=== PATIENT | female | born 1955 | race Caucasian/White ===

== ENCOUNTER 2016-10-17 17:13 | Outpatient (CLI) ==
[2016-10-17 17:28] VITALS: BMI 24.5
== END 2016-10-17 17:14 | disposition critical access hospital (66) ==
LOC: AMBL 17:13
PROVIDERS: ATTEND Internal Medicine Geriatric Medicine
DX: S01.01XA Laceration without foreign body of scalp, initial encounter (principal); F03.90 Unspecified dementia, unspecified severity, without behavioral disturbance, psychotic disturbance, mood disturbance, and anxiety; W18.30XA Fall on same level, unspecified, initial encounter; Y92.128 Other place in nursing home as the place of occurrence of the external cause

== ENCOUNTER 2016-10-17 17:23 | Emergency (ER) ==
[2016-10-17 17:28] VITALS: BP 98/61; TEMP 97.6; BMI 24.5
--- NOTE | 2016-10-17 17:41 | ED.PDOC ---
General ED Provider: Dr. TERRI BRASWELL Chief Complaint: Fall Stated Complaint: Patient was a wittness fall while at supper sustaining a laceration on back of head with some bleeding. Time Seen by Physician: 17:25 Mode of Arrival: Ambulance Information Source: EMT Exam Limitations: Dementia Primary Care Provider: DILLON MILLARD Nursing and Triage Documentation Reviewed and Agree: Yes Trauma/Injury Complaint Exam - Head Injury Complaint/Exam Location of Pain: Reports: Scalp (occipital area.) Mechanism of Injury: Reports: Trauma Associated Signs and Symptoms: Reports: Confusion Loss of Consciousness: None Related History: Denies: Occupational injury, Anticoagulants SDH Risk Factors: Present: Elderly Cervical Spine Injury Risk Factors: Present: None Immobilization Removed Post Exam: No Glascow Coma Scale (see protocol): 15 Focal Weakness: Present: None Gait: Unable Gag Reflex Present: Yes Babinski Sign: Negative Right, Negative Left Head Picture: 1 - 2.5 cm laceration Differential Diagnoses: Cervical Fracture, Intracranial Bleed, Trauma Review of Systems - Review Of Systems Constitutional: Reports: No symptoms Skin: Reports: Bruising All Other Systems: Other (Linited due to dementia) Past Medical History - Past Medical History Previously Healthy: Yes Endocrine: Reports: Dyslipidemia Cardiovascular: Reports: None Respiratory: Reports: None Hematological: Reports: None Gastrointestinal: Reports: None Genitourinary: Reports: None Neuro/Psych: Reports: Anxiety, Dementia Musculoskeletal: Reports: None Cancer: Reports: None Last Menstrual Period: none - Surgical History General Surgical History: Reports: Unknown - Family History Family History: Reports: Unknown - Social History Smoking Status: Unknown if ever smoked Hx Substance Use: No Physical Exam - Physical Exam Appearance: Ill-appearing Ill-appearing: Mild Pain Distress: Mild Eyes: NEEMA, EOMI, Conjunctiva clear ENT: Nose normal, Oropharynx normal Neck: Supple Respiratory: Airway patent, Breath sounds clear, Breath sounds equal, Respirations nonlabored Cardiovascular: RRR, Pulses normal, No rub, No murmur GI/: Soft, Nontender Musculoskeletal: ROM intact, No edema Skin: Warm, Dry Neurological: Alert, Disoriented Interpretation - Radiology Interpretation Radiology Interpretation By: Radiologist Radiology Results: No acute changes Exam Interpreted: CT Scan (Negative ) Procedures - Laceration/Wound Repair occipital area Wound Description: Irregular Wound Length (cm): 2.5 cm Wound Width: 1 Wound Depth: 0.5 Wound Explored: Clean Wound Irrigated: No Wound Prep: Jamarcusiclekendra Anesthesia: Lidocaine Wound Debrided: Minimal Wound Repaired With: Sutures Suture Size and Type: 3.0 Ethlon Number of Sutures: 7 (simple interupted. ) Sterile Dressing Applied?: Yes Splint Applied?: No Sling Applied?: No Progress: Tolerated procedure well no complications Critical Care Note - Critical Care Note Total Time (mins): 10 Course - Course Orders, Labs, Meds: Orders Category Date Time Status Lidocaine HCl/Pf [Lidocaine 1 % Amp 5 ml (Sutures)] MEDS 10/17/16 18:17 Discontinued 5 ml SQ ONCE STA CT CERVICAL SPINE W/O CONTRAST Stat RADS 10/17/16 17:[address] HEAD W/O CONTRAST Stat RADS 10/17/16 17:36 Completed Medications Discontinued Medications Generic Name Dose Route Start Last Admin Trade Name Freq PRN Reason Stop Dose Admin Lidocaine HCl 5 ml 10/17/16 18:17 Lidocaine 1 % Amp 5 Ml (Sutures) SQ 10/17/16 18:18 ONCE STA Vital Signs: Temp Pulse Resp BP Pulse Ox 10/17/16 17:24 97.6 F 69 20 98/61 100 Departure - Departure Time of Disposition: 18:39 Disposition: DISCH W/I HOSP TO [facility] Discharge Problem: Scalp injury Qualifiers: Encounter type: initial encounter Qualifier Code: (S09.90XA) Unspecified injury of head, initial encounter Scalp laceration Qualifiers: Encounter type: initial encounter Qualifier Code: (S01.01XA) Laceration without foreign body of scalp, initial encounter Instructions: Laceration (ED) Condition: Fair Pt referred to PMD for follow-up: Yes Additional Instructions: Have sutures removed in 7-10 days Allergies/Adverse Reactions: Allergies amoxicillin trihydrate [From Augmentin] Allergy (Intermediate, Verified 18:57) Rash Dr. Millard requested this allergy be added. potassium clavulanate [From Augmentin] Allergy (Intermediate, Verified 03/19/13 18:57) Rash Dr. Millard requested this allergy be added. codeine Adverse Reaction (Verified 10/17/16 17:37) Sulfa (Sulfonamide Antibiotics) Adverse Reaction (Verified 03/17/13 22:58) Home Medications: Ambulatory Orders Alprazolam [Xanax] 0.5 mg PO BID 03/15/13 Amoxicillin/Potassium Clav [Augmentin 500-125 mg Tab] 1 tab PO Q12HR 03/15/13 Atorvastatin Calcium [Lipitor] 20 mg PO DAILY 03/15/13 Cyanocobalamin (Vitamin B-12) [Cyanocobalamin Injection] 1,000 mcg IJ MONTHLY Diazepam 2 mg PO DAILY 03/15/13 Furosemide [Lasix Tab] 20 mg PO QDAC 03/15/13 Hydrochlorothiazide 25 mg PO DAILY 03/15/13 Lactobacillus Acidophilus [Probiotic] 1 each PO BID 03/15/13 Lisinopril [Zestril] 10 mg PO DAILY 03/15/13 Potassium Chloride [K-Dur] 20 meq PO DAILY 03/15/13 Disposition Discussed With: Patient
--- NOTE | 2016-10-17 18:15 | CT ---
EXAM: CT brain without contrast HISTORY: Head trauma TECHNIQUE: CT of the brain without intravenous contrast FINDINGS: There is no acute hemorrhage midline shift or mass effect. No hydrocephalus or abnormal extra-axial fluid collection. Generalized involutional atrophy, moderate. Chronic microvascular ch anges of the white matter tracts, mild. No acute large vessel territorial infarct is seen. The bon y cranium appears normal. The visualized paranasal sinuses are clear. Soft tissues without significa nt abnormality. IMPRESSION: 1. Chronic changes as described. No acute intracranial abnormality is seen.
[2016-10-17] MEDS ORDERED: LIDOCAINE 1 % AMP 5 ML (SUTURES) SQ STA (18:17)
--- NOTE | 2016-10-17 18:19 | CT ---
CT cervical spine without contrast HISTORY: Head and neck trauma and pain TECHNIQUE: CT of the cervical spine with multiplanar reformations. FINDINGS: Reformatted images demonstrate normal alignment with preservation of vertebral body heigh t. Low grade endplate spondylosis and facet arthropathy changes. No fracture seen on the axial or r eformatted images. No acute surrounding soft tissue abnormalitites. Lung apices are clear. IMPRESSION: No acute findings in the cervical spine.
== END 2016-10-17 19:25 | disposition swing bed (61) ==
LOC: ED 17:23
DX: S01.01XA Laceration without foreign body of scalp, initial encounter (principal); S09.90XA Unspecified injury of head, initial encounter; W19.XXXA Unspecified fall, initial encounter
CPT/HCPCS: 99284

== ENCOUNTER 2017-04-16 17:59 | Emergency (ER) ==
[2017-04-16 18:10] VITALS: BMI 22.7
--- NOTE | 2017-04-16 18:44 | ED.PDOC ---
General ED Provider: Dr. TOY HERNÁNDEZ Chief Complaint: Fall Stated Complaint: FALL Time Seen by Physician: 18:00 Information Source: [facility], EMT Exam Limitations: No limitations Primary Care Provider: DILLON MILLARD Nursing and Triage Documentation Reviewed and Agree: Yes (NO LOC) Reviewed sepsis parameters & appropriate labs ordered?: Yes System Inflammatory Response Syndrome: Not Applicable Sepsis Protocol: For patient's 13 years and over: Temp is 96.8 and below OR 101 and greater Pulse >90 BPM Resp >20/minute Acutely Altered Mental Status Are patient's symptoms suggestive of a new infection, such as: -Pneumonia -Skin, Soft Tissue -Endocarditis -UTI -Bone, Joint Infection -Implantable Device -Acute Abdominal Infection -Wound Infection -Meningitis -Blood Stream Catheter Infection -Unknown Trauma/Injury Complaint Exam - Head Injury Complaint/Exam Location of Pain: Reports: Scalp Mechanism of Injury: Reports: Trauma Onset/Duration: 10 MIN AGO NO LOC Symptoms Are: Still present Initial Severity: Mild Current Severity: None Aggravating: Reports: None Alleviating: Reports: None Associated Signs and Symptoms: Denies: Confusion, Memory loss, Seizure, Epistaxis, Dental malocclusion, Neck pain, Nausea, Vomiting Loss of Consciousness: None SDH Risk Factors: Present: None Cervical Spine Injury Risk Factors: Present: None Related Surgical History: Reports: None Focal Weakness: Present: None Focal Sensory Loss: Present: None Gait: Unable Gag Reflex Present: Yes Nexus Low Risk Criteria: No post-midline CS tender, No evidence of intoxicat., No Altered LOC, No focal neuro deficit, No distracting injuries Differential Diagnoses: Trauma Review of Systems - Review Of Systems Constitutional: Reports: No symptoms Eyes: Reports: No symptoms Ears, Nose, Mouth, Throat: Reports: No symptoms Respiratory: Reports: No symptoms Cardiac: Reports: No symptoms GI: Reports: No symptoms : Reports: No symptoms Musculoskeletal: Reports: No symptoms Skin: Reports: No symptoms Neurological: Reports: No symptoms Endocrine: Reports: No symptoms Hematologic/Lymphatic: Reports: No symptoms All Other Systems: Reviewed and Negative Past Medical History - Past Medical History Previously Healthy: Yes Endocrine: Reports: Dyslipidemia Cardiovascular: Reports: None Respiratory: Reports: None Hematological: Reports: None Gastrointestinal: Reports: None Genitourinary: Reports: None Neuro/Psych: Reports: Anxiety, Dementia Musculoskeletal: Reports: None Cancer: Reports: None Last Menstrual Period: unknown - Surgical History General Surgical History: Reports: Unknown - Family History Family History: Reports: Unknown - Social History Smoking Status: Unknown if ever smoked Hx Substance Use: No Alcohol Screening: None Physical Exam - Physical Exam Appearance: Well-appearing, No pain distress, Well-nourished Eyes: NEEMA, EOMI, Conjunctiva clear ENT: Ears normal, Nose normal, Oropharynx normal Respiratory: Airway patent, Breath sounds clear, Breath sounds equal, Respirations nonlabored Cardiovascular: RRR, Pulses normal, No rub, No murmur GI/: Soft, Nontender, No masses, Bowel sounds normal, No Organomegaly Musculoskeletal: Normal strength, ROM intact, No edema, No calf tenderness Skin: Warm, Dry, Normal color Neurological: Sensation intact, Motor intact, Reflexes intact, Cranial nerves intact, Alert, Oriented Psychiatric: Affect appropriate, Mood appropriate Interpretation - Radiology Interpretation Radiology Interpretation By: Radiologist Critical Care Note - Critical Care Note Total Time (mins): 0 Course - Course Orders, Labs, Meds: Orders Category Date Time Status CT CERVICAL SPINE W/O CONTRAST Stat RADS 04/16/17 18:[address] HEAD W/O CONTRAST Stat RADS 04/16/17 18:24 Ordered Vital Signs: Temp Pulse Resp BP Pulse Ox 04/16/17 18:01 98.5 F 95 H 20 98/53 L 97 Departure - Departure Time of Disposition: 19:30 Disposition: HOME SELF-CARE Discharge Problem: Head injury Qualifiers: Encounter type: initial encounter Qualified Code(s): S09.90XA - Unspecified injury of head, initial encounter Instructions: Head Injury (ED) Condition: Good Pt referred to PMD for follow-up: Yes Additional Instructions: Please call your Family Physician as soon as possible to schedule a follow-up appointment. Allergies/Adverse Reactions: Allergies amoxicillin trihydrate [From Augmentin] Allergy (Intermediate, Verified 18:57) Rash Dr. Millard requested this allergy be added. potassium clavulanate [From Augmentin] Allergy (Intermediate, Verified 03/19/13 18:57) Rash Dr. Millard requested this allergy be added. codeine Adverse Reaction (Verified 10/17/16 17:37) Sulfa (Sulfonamide Antibiotics) Adverse Reaction (Verified 03/17/13 22:58) Home Medications: Ambulatory Orders Alprazolam [Xanax] 0.25 mg PO DAILY 03/15/13 Cyanocobalamin (Vitamin B-12) [Cyanocobalamin Injection] 1,000 mcg IJ MONTHLY Furosemide [Lasix Tab] 20 mg PO QDAC 03/15/13 Lisinopril [Zestril] 10 mg PO DAILY 03/15/13 Cephalexin [Keflex] 500 mg PO Q8HR 04/16/17 Ferrous Sulfate 325 mg PO BID 04/16/17 Oseltamivir Phosphate [Tamiflu] 75 mg PO DAILY 04/16/17 Potassium Chloride [Micro-K Cap] 20 meq PO BID 04/16/17 Sennosides [Senna Lax] 1 tab PO DAILY 04/16/17 Disposition Discussed With: Patient
--- NOTE | 2017-04-16 19:42 | CT ---
Exam: CT brain without contrast Clinical indication: Fall. No further information is provided. Comparison: 10/17/2016. TECHNIQUE: Axial unenhanced CT images from the skull base through the brain were obtained. Coronal and sagital reformats were performed. Findings: There is no evidence of intra or extra-axial hemorrhage. The images are provided and off center access on all three planes. There is severe diffuse cerebral atrophy of the keeping with the patient's age. There is moderate to severe periventricular hypodensities consistent with moderate to severe chronic small vessel ischemic changes.There is no evidence of mass, infarct or midline shift. The ventricles and basilar cisterns are within normal limits. There are soft tissue changes within the right maxillary sinus suggesting acute sinusitis. There is some mild circumferential mucosal thickening within the left maxillary sinus suggesting chronic sinus itis. Otherwise, the visualized paranasal sinuses and mastoid air cells are clear. The visualized bony structures are unremarkable. Impression: 1. No interval change, with no acute intracranial abnormality. 2. Acute right and chronic left maxillary sinusitis. 3. Severe diffuse cerebral atrophy of the keeping with the patient's age. 4. Moderate to severe chronic small vessel ischemic changes.
--- NOTE | 2017-04-16 21:10 | CT ---
EXAM: CT cervical spine without contrast HISTORY: Fall COMPARISON: None TECHNIQUE: CT cervical spine without intravenous contrast. Coronal and sagittal reformatted images obtained. FINDINGS: Evaluation limited by patient positioning. Vertebral bodies normal height. No fracture. No subluxation. Straightening of the normal cervical lordosis. Mild multilevel degenerative changes . Prevertebral soft tissues appear normal. Central canal grossly patent. IMPRESSION: 1. No fracture or subluxation. 2. Mild degenerative changes 3. Straightening of the normal cervical lordosis.
[2017-04-16 21:38] VITALS: BP 124/94; TEMP 97.6
== END 2017-04-16 23:00 | disposition home or self-care (01) ==
LOC: ED 17:59
DX: S09.90XA Unspecified injury of head, initial encounter (principal); W07.XXXA Fall from chair, initial encounter; Y92.129 Unspecified place in nursing home as the place of occurrence of the external cause; F03.90 Unspecified dementia, unspecified severity, without behavioral disturbance, psychotic disturbance, mood disturbance, and anxiety
CPT/HCPCS: 99283

== ENCOUNTER 2017-05-24 14:28 | Outpatient (CLI) | END 2017-05-24 14:29 | disposition home or self-care (01) | LOC: NONPT 14:28 | PROVIDERS: ATTEND Internal Medicine | DX: R30.0 Dysuria (principal) | CPT/HCPCS: 81001; 87086 ==

== ENCOUNTER 2017-08-11 15:37 | Inpatient (IN) | payer OTHER ==
--- NOTE | 2017-08-11 17:13 | CT ---
EXAM: CT of the abdomen pelvis without contrast History: Abdominal pain. Nausea and vomiting Technique: Multiplanar CT images through the abdomen pelvis were obtained without the administration of IV contrast Findings: There is motion artifact limits evaluation. Ground-glass opacity within the right lung ba se. No acute osseous abnormalities are identified within limitations of the motion artifact. No renal stones and no hydronephrosis. No discrete gallstones identified by CT. No focal liver or s plenic lesions. Atherosclerotic vascular calcifications. No peripancreatic inflammation. Adrenal g lands are unremarkable. No bowel obstruction. Large amount of stool seen distending the rectosigmoi d colon. No perirectal inflammation. No bladder wall thickening. Atrophic uterus. No free air and no ascites. No inflammatory stranding. Impression: 1. No acute intra-abdominal or pelvic process. 2. Large amount of stool seen distending the rectosigmoid colon compatible with constipation. 3. Mild ground-glass infiltrate seen within the right lower lobe could indicate aspiration or depend ent atelectasis.
[2017-08-11] MEDS ORDERED: ZOFRAN 4 MG/2 ML IVP PRN (18:20)
[2017-08-11] MEDS ORDERED: ZOFRAN 4 MG/2 ML IVP STA (18:20)
--- NOTE | 2017-08-11 18:25 | ED.PDOC ---
General ED Provider: Dr. TOY HERNÁNDEZ Chief Complaint: Nausea/Vomiting Stated Complaint: NAUSEA, VOMITING Time Seen by Physician: 16:00 Mode of Arrival: Walk-In Information Source: Custodial Exam Limitations: No limitations Primary Care Provider: DILLON MILLARD Nursing and Triage Documentation Reviewed and Agree: Yes Reviewed sepsis parameters & appropriate labs ordered?: Yes System Inflammatory Response Syndrome: Not Applicable Sepsis Protocol: For patient's 13 years and over: Temp is 96.8 and below OR 101 and greater Pulse >90 BPM Resp >20/minute Acutely Altered Mental Status Are patient's symptoms suggestive of a new infection, such as: -Pneumonia -Skin, Soft Tissue -Endocarditis -UTI -Bone, Joint Infection -Implantable Device -Acute Abdominal Infection -Wound Infection -Meningitis -Blood Stream Catheter Infection -Unknown System Inflammatory Response Syndrome: Not Applicable GI Complaint Exam - Abdominal Pain Complaint/Exam Onset: Gradual Duration: 1 DAY WITH NAUSEA, VOMITING , LOOSE STOOLS MINIMAL ABDOMINAL PAIN ON EXAM Symptoms Are: Still present Timing: Intermittent Initial Severity: Mild Current Severity: None Location of Pain: Diffuse Radiates To: Reports: LLQ, RLQ. Denies: Chest, Back, Flank Character: Reports: Aching Aggravating: Reports: None Alleviating: Reports: None Associated Signs and Symptoms: Reports: Decreased appetite, Nausea, Vomiting, Diarrhea. Denies: Diaphoresis, Fever, Cough, Chest pain, Dizziness, Back pain, Constipation, Blood in stool, Dysuria, Urinary frequency, Decreased urine output , Vaginal bleeding, Vaginal discharge, Sore throat, Decreased activity AAA Risk Factors: Reports: None Cardiac Risk Factors: Reports: Elevated lipids Ectopic Risk Factors: Reports: None Ovarian Torsion Risk Factors: Reports: None Surgical Obstruction Risk Factors: Reports: None Related Surgical History: Reports: None Patient Rh Status: Unknown Abdominal Findings: Present: None Differential Diagnoses: Appendicitis, Bowel Obstruction, Constipation, Gastroenteritis Review of Systems - Review Of Systems Constitutional: Reports: Malaise Eyes: Reports: No symptoms Ears, Nose, Mouth, Throat: Reports: No symptoms Respiratory: Reports: No symptoms Cardiac: Reports: No symptoms GI: Reports: Abdominal pain, Diarrhea, Nausea, Poor appetite, Vomiting : Reports: No symptoms Musculoskeletal: Reports: No symptoms Skin: Reports: No symptoms Neurological: Reports: No symptoms Endocrine: Reports: No symptoms Hematologic/Lymphatic: Reports: No symptoms All Other Systems: Reviewed and Negative Past Medical History - Past Medical History Previously Healthy: Yes Endocrine: Reports: Dyslipidemia Cardiovascular: Reports: None Respiratory: Reports: None Hematological: Reports: None Gastrointestinal: Reports: None Genitourinary: Reports: None Neuro/Psych: Reports: Anxiety, Dementia Musculoskeletal: Reports: None Cancer: Reports: None Last Menstrual Period: menopause - Surgical History General Surgical History: Reports: Unknown - Family History Family History: Reports: Unknown - Social History Smoking Status: Unknown if ever smoked Hx Substance Use: No Alcohol Screening: None Physical Exam - Physical Exam Appearance: Ill-appearing Ill-appearing: Mild Pain Distress: Mild Eyes: NEEMA, EOMI, Conjunctiva clear ENT: Dry mucosa Respiratory: Airway patent, Breath sounds clear, Breath sounds equal, Respirations nonlabored Cardiovascular: RRR, Pulses normal, No rub, No murmur GI/: Soft, Nontender, No masses, Bowel sounds normal, No Organomegaly Musculoskeletal: Normal strength, ROM intact, No edema, No calf tenderness Skin: Warm, Dry, Normal color Neurological: Sensation intact, Motor intact, Reflexes intact, Cranial nerves intact, Alert, Oriented Psychiatric: Affect appropriate, Mood appropriate Interpretation - Radiology Interpretation Radiology Interpretation By: Radiologist Radiology Results: Positive (CONSTIPATION LARGE VOLUME STOOL) Physician Notification - Case Discussed Physician Notified: PMD Time of Notification: 18:26 Admit To: Inpatient Critical Care Note - Critical Care Note Total Time (mins): 0 Course - Course Hematology/Chemistry: 08/11/17 17:10 08/11/17 17:10 Orders, Labs, Meds: Lab Review 08/11/17 08/11/17 08/11/17 16:45 17:10 17:10 WBC 11.13 H RBC 3.61 L Hgb 11.8 L Hct 34.9 L MCV 96.7 MCH 32.7 H MCHC 33.8 RDW Coeff of Pillo 12.1 Plt Count 171 Immature Gran % (Auto) 0.4 Neut % (Auto) 88.6 Lymph % (Auto) 7.9 L Avery % (Auto) 2.8 Eos % (Auto) 0.0 Baso % (Auto) 0.3 Immature Gran # (Auto) 0.1 Neut # (Auto) 9.9 H Lymph # (Auto) 0.9 Avery # (Auto) 0.3 L Eos # (Auto) 0.0 Baso # (Auto) 0.0 Sodium 140 Potassium 4.6 Chloride 106 Carbon Dioxide 24 Anion Gap 14.6 BUN 30 H Creatinine 0.82 Estimated GFR (MDRD) 70.00 BUN/Creatinine Ratio 36.58 Glucose 148 H Calcium 9.2 Total Bilirubin 0.4 AST 21 ALT 30 Alkaline Phosphatase 74 Total Protein 6.7 Albumin 3.7 Globulin 3.0 Albumin/Globulin Ratio 1.23 Influ A Molecular Assay Negative by naat Influ B Molecular Assay Negative by naat Orders Category Date Time Status ACTIVITY .Complete BR CARE 08/11/17 18:19 Ordered Enema [ENEMA/RECTAL TUBE] .PRN CARE 08/11/17 18:21 Ordered INTAKE & OUTPUT Q8HR CARE 08/11/17 18:19 Ordered VITAL SIGNS Q4HR CARE 08/11/17 18:19 Ordered REGULAR DIET DIETARY 08/11/17 Dinner Ordered CBC W/ AUTO DIFF DAILY@0600 LAB 08/12/17 06:00 Ordered CBC W/ AUTO DIFF DAILY@0600 LAB 08/13/17 06:00 Ordered CBC W/ AUTO DIFF Stat LAB 08/11/17 17:10 Completed COMPREHENSIVE METABOLIC PANEL DAILY@0600 LAB 08/12/17 06:00 Ordered COMPREHENSIVE METABOLIC PANEL DAILY@0600 LAB 08/13/17 06:00 Ordered COMPREHENSIVE METABOLIC PANEL Stat LAB 08/11/17 17:10 Completed FLU A/B MOLECULAR Stat LAB 08/11/17 16:45 Completed Furosemide [Lasix Tab] MEDS 08/12/17 06:30 Ordered 20 mg PO QDAC Lisinopril [Zestril] MEDS 08/12/17 09:00 Ordered 10 mg PO DAILY Lorazepam [Ativan] MEDS 08/11/17 21:00 Ordered 0.5 mg PO TID Ondansetron HCl/Pf [Zofran 4 mg/2 ml] MEDS 08/11/17 18:20 Stat 4 mg IVP ONCE STA Ondansetron HCl/Pf [Zofran 4 mg/2 ml] MEDS 08/11/17 18:20 Ordered 4 mg IVP Q6H PRN Potassium Chloride [Micro-K Cap] MEDS 08/11/17 21:00 Ordered 20 meq PO BID Sennosides [Senna] MEDS 08/12/17 09:00 Ordered 8.6 mg PO DAILY Sodium Chloride 0.9% [Sodium Chloride] 1,000 ml MEDS 08/11/17 18:30 Ordered IV 75 mls/hr CT ABDOMEN/PELVIS WO CONTRAST Stat RADS 08/11/17 16:37 Completed Medications Generic Name Dose Route Start Last Admin Trade Name Krzysztof PRN Reason Stop Dose Admin Sodium Chloride 1,000 mls @ 75 mls/hr 08/11/17 18:30 Sodium Chloride IV .[id number] JEFF Ondansetron HCl 4 mg 08/11/17 18:20 Zofran 4 Mg/2 Ml IVP Q6H PRN Nausea / Vomiting Discontinued Medications Generic Name Dose Route Start Last Admin Trade Name Krzysztof PRN Reason Stop Dose Admin Ondansetron HCl 4 mg 08/11/17 18:20 Zofran 4 Mg/2 Ml IVP 08/11/17 18:21 ONCE STA Vital Signs: Temp Pulse Resp BP Pulse Ox 08/11/17 18:06 102/50 L 08/11/17 17:43 107/59 L 08/11/17 15:42 96.8 F L 65 16 84/39 L 97 Departure - Departure Time of Disposition: 18:27 Disposition: ADMITTED INPATIENT Discharge Problem: Nausea, Vomiting Constipation Qualifiers: Constipation type: unspecified constipation type Qualified Code(s): K59.00 - Constipation, unspecified Abdominal pain Qualifiers: Abdominal location: generalized Qualified Code(s): R10.84 - Generalized abdominal pain Instructions: Abdominal Pain (ED) Condition: Good Pt referred to PMD for follow-up: Yes IPMP verified?: No Allergies/Adverse Reactions: Allergies codeine Adverse Reaction (Verified 08/11/17 15:55) Sulfa (Sulfonamide Antibiotics) Adverse Reaction (Verified 08/11/17 15:55) Home Medications: Ambulatory Orders Cyanocobalamin (Vitamin B-12) [Cyanocobalamin Injection] 1,000 mcg IJ MONTHLY Furosemide [Lasix Tab] 20 mg PO QDAC 03/15/13 Lisinopril [Zestril] 10 mg PO DAILY 03/15/13 Ferrous Sulfate 325 mg PO BID 04/16/17 Potassium Chloride [Micro-K Cap] 20 meq PO BID 04/16/17 Sennosides [Senna Lax] 1 tab PO DAILY 04/16/17 Acetaminophen 1,000 mg PO Q4HR PRN 08/11/17 Lorazepam [Ativan] 0.5 mg PO TID 08/11/17
[2017-08-11 20:34] VITALS: BMI 22.6
[2017-08-11] MEDS: SODIUM CHLORIDE 1,000 ML IV SCH (20:47)
[2017-08-11] MEDS: ATIVAN PO SCH ×2 (21:51→23:45)
[2017-08-11] MEDS: MICRO-K CAP PO SCH ×2 (21:51→23:46)
[2017-08-12] MEDS: LASIX TAB PO SCH (06:35)
[2017-08-12] MEDS ORDERED: ZOFRAN 4 MG/2 ML IVP STA (08:26)
[2017-08-12] MEDS: K-DUR PO SCH ×2 (10:34→17:08)
[2017-08-12] MEDS: ATIVAN PO SCH ×3 (10:34→20:54)
[2017-08-12] MEDS: SENNA PO SCH (10:35)
[2017-08-12] MEDS: ZESTRIL PO SCH (10:36)
[2017-08-12] MEDS: PROTONIX IV IVP SCH (10:41)
[2017-08-12] MEDS: ROCEPHIN 1 GM in SODIUM CHLORIDE 50 ML IV SCH (10:41)
[2017-08-12] MEDS: SODIUM CHLORIDE 1,000 ML IV SCH ×2 (10:41→23:34)
--- NOTE | 2017-08-12 11:14 | RS.SLPCNOT ---
Speech Case Note Date of Note: 08/12/17 Title: Swallow screen Note: RANCH HELPER attempted bedside swallow evaluation with pt. No PO intake was consumed. Pt laying on side and when given assistance would not move to back to sit upright for feeding. Pt did respond to simple yes/no questions, primarily with a no bias, but answered yes three times. Pt verbally stated "i'm cold" and "i'm scared". RANCH HELPER did not try to aggitate pt with food and liquids. RANCH HELPER educated RN to contact RANCH HELPER when pt did take PO and report s/s of aspiration. RANCH HELPER to attempt bedside swallow evaluation with pt at next opportunity.
--- NOTE | 2017-08-12 14:33 | HP ---
DATE OF SERVICE: 08/12/17 HISTORY OF PRESENT ILLNESS: This is a 62-year-old white female, who is a resident at [facility] and [facility]. She has severe dementia with behavioral disturbances and does not communicate very well. She was brought to the emergency room today due to vomiting times three, decreased appetite. PAST MEDICAL HISTORY: Dementia with behavioral disturbances Hypertension Anxiety Vitamin B12 deficiency Hyperglycemia Dyslipidemia History of leg edema Coronary artery disease Osteoarthritis PAST SURGICAL HISTORY: None REVIEW OF SYSTEMS: CONSTITUTIONAL: Positive for confusion. No night sweats. No fatigue, malaise, lethargy. No fever or chills. HEENT: Eyes: No visual changes. No eye pain. No eye discharge. ENT: No runny nose. No epistaxis. No sinus pain. No sore throat. No odynophagia. No ear pain. No congestion. RESPIRATORY: No cough, no congestion. No hemoptysis. No shortness of breath. CARDIOVASCULAR: No angina symptoms. No CHF symptoms. No atypical chest pain for CAD. No palpitations. No orthopnea. GASTROINTESTINAL: Positive for vomiting and decreased appetite. No abdominal pain. No nausea. No diarrhea or constipation. No hematemesis. No hematochezia. GENITOURINARY: No urgency. No frequency. No dysuria. No hematuria. No obstructive symptoms. No discharge. No pain. No significant abnormal bleeding. MUSCULOSKELETAL: No musculoskeletal pain. No joint swelling. No arthritis. NEUROLOGICAL: No headache. No neck pain. No syncope. No seizures. No dizziness. PSYCHIATRIC: Not anxious. No depression. No suicidal thoughts. No homicidal thoughts. SKIN: No rash. No lesions. No wounds. ENDOCRINE: No unexplained weight loss. No weight gain. HEMATOLOGIC/LYMPHATIC: No anemia. No purpura. No petechiae. No prolonged or excessive bleeding. No palpable lymph nodes. PERSONAL/FAMILY/SOCIAL HISTORY: The patient is a resident of [facility]. She needs help with feeding. She is a nonsmoker. Family History: positive for coronary artery disease and hypertension. MEDICATIONS: (Home) Cyanocobalamin (Vitamin B12) 1,000 mcg monthly Lisinopril (Zestril) 10 mg p.o. daily Furosemide (Lasix) 20 mg p.o q.d a.c. Senna 8.6 mg one tab p.o. daily Potassium Chloride (Micro-K) 10 mEq capsule 20 mEq p.o. b.i.d. Ferrous Sulfate 325 mg p.o. b.i.d. Acetaminophen 1,000 mg p.o. q.4h p.r.n. Lorazepam (Ativan) 0.5 mg p.o. t.i.d. ALLERGIES: CODEINE, SULFA (SULFONAMIDE ANTIBIOTICS) PHYSICAL EXAMINATION: VITAL SIGNS: Temperature 96.8, heart rate 65, respirations 18, BP 102/65, pulse ox 100% on room air. HEENT: Head normocephalic, atraumatic. Eyes: Extraocular muscles are intact. Pupils are equal, round and reactive to light and accommodation. Ears: No lesions. Nose appeared normal. Throat: No exudate or erythema. NECK: Supple. No JVD, no carotid bruit. No lymphadenopathy or thyromegaly. LUNGS: Clear to auscultation. Percussion note normal. Chest symmetrical. HEART: S1, S2, no S3. No murmurs. No cyanosis or clubbing. No ascites. Pulses: Dorsalis pedis and posterior tibial pulses +1 to +2 both sides. ABDOMEN: Soft. Nontender. Bowel sounds active. No CVA tenderness. No mass felt. EXTREMITIES: No edema. Full range of motion of all extremities, equal. NEUROLOGIC: The patient is alert and does not communicate. No focal deficit. Cranial nerves II through XII are grossly intact. No headache, no double vision or headache. SKIN: Dry. Intact. Turgor - normal. LYMPHATIC: No palpable lymph nodes/no lymphedema. MUSCULOSKELETAL: Normal joints with no swelling. Muscle tone is normal. LABS: Sodium 140, potassium 4.6, BUN 30, creatinine 0.82, total bili 0.4, AST 21, ALT 30, total protein 6.7, albumin 3.7. White count 11.13, hemoglobin 11.8, hematocrit 34.9, platelets 171, rapid flu A & B are both negative. CT of the abdomen and pelvis shows no acute process, large amount of stool in the descending colon compatible with constipation. Mild ground glass seen within the right lower lobe which could indicate aspiration vs atelectasis. ASSESSMENT: 1. ACUTE GASTROENTERITIS 2. DEHYDRATION 3. DEMENTIA WITH BEHAVIORAL DISTURBANCES PLAN: 1. Admit 2. Will start IV fluids D5 1/2 NS at 75 cc/hr 3. Zofran 4 mg IV q.4hr p.r.n. 4. Protonix 40 mg IV daily 5. Do a full liquid diet - BRAT diet 6. Speech evaluation and consult 7. CBC, CMP daily 8. Routine telemetry orders 9. Fall precautions 10. Will follow closely 11. Amylase and lipase TIME SPENT: More than 70 minutes. MTDD
[2017-08-13] MEDS: LASIX TAB PO SCH (05:35)
[2017-08-13] MEDS: ROCEPHIN 1 GM in SODIUM CHLORIDE 50 ML IV SCH (09:18)
[2017-08-13] MEDS: PROTONIX IV IVP SCH (09:28)
[2017-08-13] MEDS: ZESTRIL PO SCH (09:31)
[2017-08-13] MEDS: K-DUR PO SCH ×2 (09:31→17:30)
[2017-08-13] MEDS: ATIVAN PO SCH ×3 (09:31→20:26)
[2017-08-13] MEDS: SENNA PO SCH (09:31)
--- NOTE | 2017-08-13 10:00 | PCM.PROG ---
Attending Provider: ATTENDING PROVIDER: Dr. DILLON MILLARD This patient is seen with Brandee Walsh, Nurse Practitioner. DATE OF SERVICE: 08/12/17 SUBJECTIVE: This 62 year old WHITE/ F was hospitalized 08/11/17. The patient is lying in bed resting comfortably. No vomiting through the night. She has had four large bowel movements. REVIEW OF SYSTEMS: CONSTITUTIONAL: Weakness. No night sweats. No malaise, lethargy. No fever or chills. HEENT: Eyes: No visual changes. No eye pain. No eye discharge. ENT: No runny nose. No epistaxis. No sinus pain. No odynophagia. No congestion. RESPIRATORY: No cough, no congestion. No hemoptysis. No shortness of breath. CARDIOVASCULAR: No angina symptoms. No CHF symptoms. No atypical chest pain for CAD. No palpitations. No orthopnea.. GASTROINTESTINAL: No abdominal pain. No nausea or vomiting. No diarrhea or constipation. No hematemesis. No hematochezia. GENITOURINARY: No urgency. No frequency. No dysuria. No hematuria. No obstructive symptoms. No discharge. No pain. No significant abnormal bleeding. MUSCULOSKELETAL: No musculoskeletal pain; no joint swelling. NEUROLOGICAL: Awake - confused. No headache. No neck pain. No syncope. No seizures. No dizziness. PSYCHIATRIC: Not anxious. No depression. No suicidal thoughts. No homicidal thoughts. SKIN: No rash. No lesions. No wounds. ENDOCRINE: No unexplained weight loss. No weight gain. HEMATOLOGIC/LYMPHATIC: No anemia. No purpura. No petechiae. No prolonged or excessive bleeding. No palpable lymph nodes. PHYSICAL EXAMINATION: GENERAL: The patient is awake, alert, does not communicate due to severe dementia, lying in bed in no distress. VITAL SIGNS: Temperature 96.8 F, Pulse 65, Respiratory Rate 18, BP 102/65, Pulse Ox 100% HEENT: Head normocephalic, atraumatic. Eyes: Extraocular muscles are intact. Pupils are equal, round and reactive to light and accommodation. Ears: No lesions. Nose appeared normal. Throat: No exudate or erythema. NECK: Supple. No JVD, no carotid bruit. No lymphadenopathy or thyromegaly. LUNGS: Diminished breath sounds. Clear to auscultation. Percussion note normal. Chest symmetrical. HEART: S1, S2, no S3. No murmurs. No cyanosis or clubbing. No ascites. Pulses: Dorsalis pedis and posterior tibial pulses +1 to +2 both sides. ABDOMEN: Soft. Non-tender. Bowel sounds active. No CVA tenderness. No mass felt. EXTREMITIES: No edema. Full range of motion of all extremities, equal. NEUROLOGIC: No focal deficit. Cranial nerves II through XII are grossly intact. No headache, no double vision or headache. SKIN: Not dry. Intact. Turgor-normal. LYMPHATIC: No palpable lymph nodes/no lymphedema. MUSCULOSKELETAL: Normal joints with no swelling. Muscle tone is normal. LAB REVIEW: 08/12/17 05:00 08/12/17 04:30 08/12/17 05:00: WBC 9.32, RBC 3.56 L, Hgb 11.5 L, Hct 33.5 L, MCV 94.1, MCH 32.3 H, MCHC 34.3, RDW Coeff of Pillo 11.9, Plt Count 195, Immature Gran % (Auto) 0.1, Neut % (Auto) 82.6, Lymph % (Auto) 12.4, [place] % (Auto) 4.6, Eos % (Auto) 0.2, Baso % (Auto) 0.1, Immature Gran # (Auto) 0.0, Neut # (Auto) 7.7 H, Lymph # (Auto) 1.2, [place] # (Auto) 0.4, Eos # (Auto) 0.0, Baso # (Auto) 0.0 08/12/17 04:30: Sodium 138, Potassium 4.9, Chloride 106, Carbon Dioxide 24, Anion Gap 12.9, BUN 28 H, Creatinine 0.74, Estimated GFR (MDRD) 79.00, BUN/ Creatinine Ratio 37.83, Glucose 111, Calcium 9.1, Total Bilirubin 0.3, AST 21, ALT 28, Alkaline Phosphatase 73, Total Protein 6.6, Albumin 3.4, Globulin 3.2, Albumin/Globulin Ratio 1.06 08/11/17 17:10: Sodium 140, Potassium 4.6, Chloride 106, Carbon Dioxide 24, Anion Gap 14.6, BUN 30 H, Creatinine 0.82, Estimated GFR (MDRD) 70.00, BUN/ Creatinine Ratio 36.58, Glucose 148 H, Calcium 9.2, Total Bilirubin 0.4, AST 21 , ALT 30, Alkaline Phosphatase 74, Total Protein 6.7, Albumin 3.7, Globulin 3.0 , Albumin/Globulin Ratio 1.23 08/11/17 17:10: WBC 11.13 H, RBC 3.61 L, Hgb 11.8 L, Hct 34.9 L, MCV 96.7, MCH 32.7 H, MCHC 33.8, RDW Coeff of [place]illo 12.1, Plt Count 171, Immature Gran % (Auto) 0.4, Neut % (Auto) 88.6, Lymph % (Auto) 7.9 L, [place] % (Auto) 2.8, Eos % (Auto) 0.0, Baso % (Auto) 0.3, Immature Gran # (Auto) 0.1, Neut # (Auto) 9.9 H, Lymph # (Auto) 0.9, [place] # (Auto) 0.3 L, Eos # (Auto) 0.0, Baso # (Auto) 0.0 08/11/17 16:45: Influ A Molecular Assay Negative by naat, Influ B Molecular Assay Negative by naat ASSESSMENT: 1. Acute gastroenteritis 2. Dehydration PLAN: 1. Zofran 4 mg IV 2. Protonix 40 mg IV 3. Continue IV fluids 4. Full liquid diet 5. Amylase and lipase Plan and coordination of the patient's care discussed in the presence of Racing Car Driver and nurse. CONDITION: Stable SCRIBED BY: YEN BASS Weighmaster scribed while in presence of service performed by Dr. Millard/Brandee Walsh APRN on 08/12/17 ([id number])
--- NOTE | 2017-08-13 10:20 | PCM.PROG ---
Attending Provider: ATTENDING PROVIDER: Dr. DILLON MILLARD This patient is seen with Brandee Walsh, Nurse Practitioner. DATE OF SERVICE: 08/13/17 SUBJECTIVE: This 62 year old WHITE/ F was hospitalized 08/11/17. The patient is lying in bed, awake, does not communicate verbally. She has been refusing all medications and food. No vomiting or diarrhea. REVIEW OF SYSTEMS: CONSTITUTIONAL: No night sweats. No fatigue, malaise, lethargy. No fever or chills. HEENT: Eyes: No visual changes. No eye pain. No eye discharge. ENT: No runny nose. No epistaxis. No sinus pain. No odynophagia. No congestion. RESPIRATORY: No cough, no congestion. No hemoptysis. No shortness of breath. CARDIOVASCULAR: No angina symptoms. No CHF symptoms. No atypical chest pain for CAD. No palpitations. No orthopnea.. GASTROINTESTINAL: Decreased appetite. No abdominal pain. No nausea or vomiting. No diarrhea or constipation. No hematemesis. No hematochezia. GENITOURINARY: No urgency. No frequency. No dysuria. No hematuria. No obstructive symptoms. No discharge. No pain. No significant abnormal bleeding. MUSCULOSKELETAL: No musculoskeletal pain; no joint swelling. NEUROLOGICAL: Awake, confused. No headache. No neck pain. No syncope. No seizures. No dizziness. PSYCHIATRIC: Not anxious. No depression. No suicidal thoughts. No homicidal thoughts. SKIN: No rash. No lesions. No wounds. ENDOCRINE: No unexplained weight loss. No weight gain. HEMATOLOGIC/LYMPHATIC: No anemia. No purpura. No petechiae. No prolonged or excessive bleeding. No palpable lymph nodes. PHYSICAL EXAMINATION: GENERAL: The patient is awake, alert. does not communicate verbally, lying in bed in no distress. VITAL SIGNS: Temperature 96.8 F, Pulse 68, Respiratory Rate 18, BP 102/65, Pulse Ox 100% HEENT: Head normocephalic, atraumatic. Eyes: Extraocular muscles are intact. Pupils are equal, round and reactive to light and accommodation. Ears: No lesions. Nose appeared normal. Throat: No exudate or erythema. NECK: Supple. No JVD, no carotid bruit. No lymphadenopathy or thyromegaly. LUNGS: Clear to auscultation. Percussion note normal. Chest symmetrical. HEART: S1, S2, no S3. No murmurs. No cyanosis or clubbing. No ascites. Pulses: Dorsalis pedis and posterior tibial pulses +1 to +2 both sides. ABDOMEN: Soft. Non-tender. Bowel sounds active. No CVA tenderness. No mass felt. EXTREMITIES: No edema. Full range of motion of all extremities, equal. NEUROLOGIC: No focal deficit. Cranial nerves II through XII are grossly intact. No headache, no double vision or headache. SKIN: Not dry. Intact. Turgor-normal. LYMPHATIC: No palpable lymph nodes/no lymphedema. MUSCULOSKELETAL: Normal joints with no swelling. Muscle tone is normal. LAB REVIEW: 08/13/17 04:30 08/13/17 04:30 08/13/17 04:30: Sodium 138, Potassium 4.3, Chloride 106, Carbon Dioxide 25, Anion Gap 11.3, BUN 17, Creatinine 0.72, Estimated GFR (MDRD) 82.00, BUN/ Creatinine Ratio 23.61, Glucose 92, Calcium 8.5, Total Bilirubin 0.5, AST 20, ALT 22, Alkaline Phosphatase 71, Total Protein 5.9, Albumin 3.1 L, Globulin 2.8 , Albumin/Globulin Ratio 1.11 08/13/17 04:30: WBC 8.17, RBC 3.68 L, Hgb 11.6 L, Hct 35.0 L, MCV 95.1, MCH 31.5 H, MCHC 33.1, RDW Coeff of Pillo 11.9, Plt Count 196, Immature Gran % (Auto) 0.4, Neut % (Auto) 78.7, Lymph % (Auto) 14.2, [place] % (Auto) 5.9, Eos % (Auto) 0.4, Baso % (Auto) 0.4, Immature Gran # (Auto) 0.0, Neut # (Auto) 6.4, Lymph # ( Auto) 1.2, [place] # (Auto) 0.5, Eos # (Auto) 0.0, Baso # (Auto) 0.0 08/12/17 05:15: Amylase 30, Lipase 26 ASSESSMENT: 1. Acute gastroenteritis 2. Dehydration, resolved PLAN: 1. KUB (please ask to comment on stool) Plan and coordination of the patient's care discussed in the presence of Perl Developer and nurse. CONDITION: Stable SCRIBED BY: YEN BASS, Emergency Department Technician scribed while in presence of service performed by Dr. Millard/Brandee Walsh APRN on 08/13/17 ([id number])
--- NOTE | 2017-08-13 11:10 | PN ---
DATE OF SERVICE: 08/11/17 (ADMIT NOTE) SUBJECTIVE: The patient was hospitalized through the emergency room as care home called me with her having vomiting. Also on further questioning the patient had 3-4 diarrhea stool with 3-4 vomiting spells. The patient's CAT scan showed that she had large amount of stool in the sigmoid colon also. The patient physical exam the patient's skin turgor was not that good almost poor with evidence of dehydration by BUN and creatinine. The patient was hospitalized with gastroenteritis diagnosis with possibility of fecal stasis in the colon area. PLAN: 1. Give IV fluids 2. Work on the fecal stasis 3. Monitor CBC and CMP 4. Treat her conservatively CONDITION: Stable. TIME SPENT: More than 30 minutes. Plan and coordination of the patient's care discussed in the presence of nurse. KAREN
--- NOTE | 2017-08-13 11:29 | DI ---
Exam: Single x-ray of the abdomen. Comparison: CT abdomen pelvis performed 08/11/2017. Reason for exam: Constipation. FINDINGS: The bowel gas pattern is nonspecific and nonobstructive. There is a large stool burden se en throughout the entirety of the abdomen with a large amount of stool seen in the rectal vault. Impression: A large stool burden with a nonspecific, nonobstructive bowel gas pattern. Imaging findin gs are most consistent with constipation or impaction.
[2017-08-13] MEDS ORDERED: ATIVAN PO STA (11:54)
[2017-08-13] MEDS: SODIUM CHLORIDE 1,000 ML IV SCH (12:57)
--- NOTE | 2017-08-13 15:37 | PN ---
DATE OF SERVICE: 08/12/17 SUBJECTIVE: The patient is doing better, no nausea and no vomiting. A lot of bowel movement. The patient is feeling better. Her hydration status on physical exam has improved. The patient was seen and examined with Nurse Practitioner. We will continue to do CBC and CMP. TIME SPENT: More than 30 minutes. Plan and coordination of the patient's care discussed in the presence of nurse. KAREN
[2017-08-14] MEDS: LASIX TAB PO SCH (06:07)
[2017-08-14] MEDS: K-DUR PO SCH (08:21)
[2017-08-14] MEDS: ATIVAN PO SCH (08:21)
[2017-08-14] MEDS: ZESTRIL PO SCH (08:22)
[2017-08-14] MEDS: SENNA PO SCH (08:22)
[2017-08-14] MEDS: ROCEPHIN 1 GM in SODIUM CHLORIDE 50 ML IV SCH (09:38)
[2017-08-14] MEDS: PROTONIX IV IVP SCH (09:39)
[2017-08-14] MEDS ORDERED: LIDOCAINE HCL 1% SDV IM STA (09:43)
[2017-08-14] MEDS ORDERED: ATIVAN IM STA (09:44)
[2017-08-14] MEDS ORDERED: ROCEPHIN IM SCH (10:00)
[2017-08-14 11:32] VITALS: TEMP 98.2
[2017-08-14 15:21] VITALS: BP 128/76
--- NOTE | 2017-08-17 11:05 | PN ---
DATE OF SERVICE: 08/14/17 SUBJECTIVE: The patient was doing good and eating better. Her constipation had resolved. She did not have any diarrhea. The patient was seen and examined with the Nurse Practitioner. CONDITION: Stable TIME SPENT: More than 30 minutes. Plan and coordination of the patient's care discussed in the presence of nurse. KAREN
--- NOTE | 2017-08-17 11:06 | PN ---
08/11/17: Level 5 08/12/17: Intermediate 08/13/17: Intermediate 08/14/17: D as in discharge MTDD
--- NOTE | 2017-08-25 11:28 | DS ---
DATE OF SERVICE: 08/14/17 FINAL DIAGNOSIS: 1. CONSTIPATION, IMPACTION, WHICH HAS RESOLVED 2. VOMITING, WHICH HAS RESOLVED 3. DIMINISHED APPETITE 4. DEMENTIA WITH BEHAVIORAL DISTURBANCES 5. AGITATION/ANXIETY DISCHARGE INSTRUCTIONS: Will follow patient during custodial rounds. MEDICATIONS AT DISCHARGE: Cyanocobalamin (Vitamin B12) 1,000 mcg monthly Lisinopril (Zestril) 10 mg p.o. daily Furosemide (Lasix) 20 mg p.o. q.d a.c. Micro-K 20 mEq p.o. b.i.d. Ferrous Sulfate 325 mg p.o. b.i.d. Acetaminophen 1,000 mg p.o. q.4hr p.r.n. Ativan 0.5 mg p.o. t.i.d. NEW PRESCRIPTIONS: Senna 8.6 mg p.o. b.i.d. DIET INSTRUCTIONS: Heart Healthy ACTIVITY: As patient tolerates. SMOKING: N/A DISEASE SPECIFIC EDUCATION: The patient does not communicate. HOSPITAL COURSE: 62-year-old white female, who is a resident of [facility] who is brought in for nausea, vomiting and decreased appetite on the . CT of the abdomen revealed constipation with possible impaction; however, she had three bowel movements from the time she was in the emergency room to being brought to her room. She did not experience any vomiting after admission. She does have severe dementia and is unable to communicate. The nurses have not been able to get her to eat much or take very much of her medications. We did start her on Protonix 40 mg IV b.i.d. for the past 2 days. She has been very difficult to keep her IV as she is pulling it out. Yesterday, repeat KUB was done which still showed a large amount of stool. She was given a Fleets enema, had a very large bowel movement. Her abdomen feels soft and is nontender today. She does have increasing agitation likely due to change in environment. She has done well. She did eat breakfast this morning. We will give her another enema today to make sure that there is no stool left. Again, it appears that this has resolved after her very large bowel movement yesterday and we will discharge her back to [place]. She is on Senna laxative once daily. Will increase this to twice daily once she goes back for the next week. She has been getting Rocephin here for questionable bronchitis on chest x-ray. She will get her third dose of Rocephin IM before she goes back to the custodial. It is felt that she is likely to do better in her usual environment. So again she will get a Fleets enema before she leaves and she will be discharged in stable condition. LABS: White count 8.1, hemoglobin 11.6, hematocrit 35.0, platelets 196. Sodium 138, potassium 4.3, BUN 17, creatinine 0.72. TIME SPENT: More than 60 minutes. MTDD
== END 2017-08-14 15:55 | DRG 389 ==
LOC: ED 15:37 → SCU 18:40
PROVIDERS: ADMIT Internal Medicine; ATTEND Internal Medicine
DX: K56.41 Fecal impaction (principal); F03.91 Unspecified dementia, unspecified severity, with behavioral disturbance; K52.9 Noninfective gastroenteritis and colitis, unspecified; R63.0 Anorexia; F41.9 Anxiety disorder, unspecified; E86.0 Dehydration; R10.84 Generalized abdominal pain; Z79.899 Other long term (current) drug therapy
CPT/HCPCS: 36415; 80053; 82150; 83690; 85025; 87081; 87502; 96374; 99284